=== PATIENT | male | born 1975 ===

== ENCOUNTER 2017-06-19 17:50 | Emergency (ER) | payer OTHER ==
[2017-06-19 17:56] VITALS: BMI 30.2
[2017-06-19 17:57] VITALS: TEMP 98.9
--- NOTE | 2017-06-19 18:38 | ED PDOC ---
Arrival/HPI - General Chief Complaint: Chest Pain Time Seen by Provider: 06/19/17 18:07 Historian: Patient - History of Present Illness Narrative History of Present Illness (Text): 06/19/17 18:53 41yo male with no PMHx who present with complaint of left sided rib pain x 4days. He notes that pain is usually with palpation and deep inspiration. did not take any medication for the pain. Denies SOB, diaphoresis, rash, fever, chills, trauma, chest pain, nausea, vomiting, any other complaint. Past Medical History - Provider Review Nursing Documentation Reviewed: Yes - Psychiatric Hx Substance Use: No Family/Social History - Physician Review Nursing Documentation Reviewed: Yes Family/Social History: Unknown Family HX Smoking Status: Never Smoked Hx Alcohol Use: No Hx Substance Use: No Allergies/Home Meds Allergies/Adverse Reactions: Allergies No Known Allergies Allergy (Verified 06/19/17 17:56) Review of Systems - Physician Review All systems were reviewed & negative as marked: Yes - Review of Systems Constitutional: Normal Eyes: Normal ENT: Normal Respiratory: Normal Cardiovascular: Normal Gastrointestinal: Normal Genitourinary Male: Normal Musculoskeletal: Arthralgias (Left anterior tib pain) Skin: Normal Neurological: Normal Endocrine: Normal Hemo/Lymphatic: Normal Psychiatric: Normal Physical Exam Vital Signs Reviewed: Yes Vital Signs Temp Pulse Resp BP Pulse Ox 06/19/17 19:05 75 18 141/94 H 100 06/19/17 17:58 98.9 F 80 19 168/105 H 96 06/19/17 17:57 98.9 F 79 17 168/105 H 95 Temperature: Afebrile Blood Pressure: Hypertensive Pulse: Regular Respiratory Rate: Normal Appearance: Positive for: Well-Appearing, Non-Toxic, Comfortable Pain Distress: None Mental Status: Positive for: Alert and Oriented X 3 - Systems Exam Head: Present: Atraumatic, Normocephalic Pupils: Present: PERRL Extroacular Muscles: Present: EOMI Conjunctiva: Present: Normal Mouth: Present: Moist Mucous Membranes Neck: Present: Normal Range of Motion Respiratory/Chest: Present: Clear to Auscultation, Good Air Exchange, Tender to Palpation (Over left anterior ribs). No: Respiratory Distress, Accessory Muscle Use, Decreased Breath Sounds, Rales, Retracting, Rhonchi Cardiovascular: Present: Regular Rate and Rhythm, Normal S1, S2. No: Murmurs Abdomen: Present: Normal Bowel Sounds. No: Tenderness, Distention, Peritoneal Signs Back: Present: Normal Inspection Upper Extremity: Present: Normal Inspection. No: Cyanosis, Edema Lower Extremity: Present: Normal Inspection. No: Edema Neurological: Present: GCS=15, CN II-XII Intact, Speech Normal Skin: Present: Warm, Dry, Normal Color. No: Rashes Psychiatric: Present: Alert, Oriented x 3, Normal Insight, Normal Concentration Medical Decision Making ED Course and Treatment: 06/19/17 20:03 Pt' pain improved in ED on re evaluation. Ribs series/CXR - No fracture. No PTX Result was DW the pt. His pain is reproducible. He will be DC home with NSAID rx. Referred to his PMD. VS improved. - RAD Interpretation Radiology Orders: 06/19/17 18:11 RIBS LEFT & PA CHEST [RAD] Stat - Medication Orders Current Medication Orders: Discontinued Medications Ketorolac Tromethamine (Toradol) 60 mg IM STAT STA Stop: 06/19/17 18:13 Last Admin: 06/19/17 18:22 Dose: 60 mg MAR Pain Assessment Document 06/19/17 18:22 LA (Rec: 06/19/17 18:26 LA [id number]) Pain Reassessment Is this a pain reassessment? No Sleep Is patient sleeping during reassessment? No Presence of Pain Presence of Pain Yes Pain Scale Used Pain Scale Used Numeric Location Left, Right or Bilateral Left Upper or Lower Upper Pain Location Body Site Chest IM Administration Charges Document 06/19/17 18:22 LA (Rec: 06/19/17 18:26 LA [id number]) Injection Site MAR Injection Site Left Gluteus Yovany Charges for Administration # of IM Administrations 1 Disposition/Present on Arrival - Present on Arrival Any Indicators Present on Arrival: No History of DVT/PE: No History of Uncontrolled Diabetes: No Urinary Catheter: No History of Decub. Ulcer: No History Surgical Site Infection Following: None - Disposition Have Diagnosis and Disposition been Completed?: Yes Diagnosis: Rib pain Disposition: HOME/ ROUTINE Disposition Time: 20:05 Patient Plan: Discharge Condition: STABLE Discharge Instructions (ExitCare): Chest Pain (ED) Additional Instructions: Follow up with your doctor Return to ED for any new or worsening symptoms Prescriptions: Naproxen [Naprosyn] 500 mg PO BID #20 tab Referrals: PCP,NO [Primary Care Provider] - Follow up with primary [facility] at [facility] [Outside] - Follow up with primary Forms: [employer] ([place]ian)
[2017-06-19 22:46] VITALS: BP 141/82; PULSE 82; RESP 18; O2SAT 98
--- NOTE | 2017-06-20 09:23 | RAD ---
PROCEDURE: Radiographs of the Chest and Left Ribs. HISTORY: left rib pain COMPARISON: None available. TECHNIQUE: Frontal radiograph of the chest and multiple oblique radiographs of the left ribs were obtained. FINDINGS: LEFT RIBS: No acute rib fracture or focal lesion visualized. LUNGS: The lungs are well inflated and clear. PLEURA: No pneumothorax or pleural fluid. CARDIOVASCULAR: Normal sized heart. No pulmonary vascular congestion. OTHER FINDINGS: None. IMPRESSION: No acute rib fracture or destructive bony lesion. Clear lungs.
== END 2017-06-19 20:17 | disposition home or self-care (01) ==
LOC: ED 17:50
DX: R07.81 Pleurodynia (principal)
CPT/HCPCS: 71101; 96372; 99284; J1885

== ENCOUNTER 2017-08-05 17:47 | Emergency (ER) | payer OTHER ==
[2017-08-05 17:47] VITALS: BMI 30.2
[2017-08-05 18:17] VITALS: TEMP 98.1
--- NOTE | 2017-08-05 18:43 | ED PDOC ---
Arrival/HPI - General Chief Complaint: Abdominal Pain Time Seen by Provider: 08/05/17 18:22 Historian: Patient - History of Present Illness Narrative History of Present Illness (Text): 08/05/17 18:38 42-year-old male presents today with left upper quadrant abdominal pain and left -sided chest pain since June 19. Patient states he was seen in the emergency room had x-rays and was given pain medications. Patient states the pain medication has not been working for the pain. Patient rates the pain as a 9 out of 10. Patient states the pain is constant and stabbing. He denies radiation of the pain. Denies nausea vomiting diarrhea or constipation. Denies urinary symptoms. Denies back pain. Denies palpitations. Patient denies any recent trauma or injury. Denies dizziness or weakness. Patient denies shortness of breath, but states that the pain worsens with deep inspiration. Patient states he has been taking Naprosyn without improvement in his symptoms. No other complaints Symptom Course: Unchanged Past Medical History - Provider Review Nursing Documentation Reviewed: Yes - Travel History Have you recently traveled outside [place] w/in the past 3 mons?: No - Infectious Disease Hx of Infectious Diseases: None - Tetanus Immunization Tetanus Immunization: Unknown - Psychiatric Hx Substance Use: No Family/Social History - Physician Review Nursing Documentation Reviewed: Yes Family/Social History: Unknown Family HX Smoking Status: Never Smoked Hx Alcohol Use: Yes Frequency of alcohol use: Socially Hx Substance Use: No Allergies/Home Meds Allergies/Adverse Reactions: Allergies No Known Allergies Allergy (Verified 08/05/17 18:12) Home Medications: Home Meds Medication Instructions Recorded Confirmed No Known Home Med 08/05/17 08/05/17 Review of Systems - Review of Systems Constitutional: absent: Fatigue, Fevers Respiratory: absent: SOB, Cough Cardiovascular: Chest Pain. absent: Palpitations Gastrointestinal: Abdominal Pain. absent: Constipation, Diarrhea, Nausea, Vomiting Genitourinary Male: absent: Dysuria, Frequency, Hematuria Musculoskeletal: absent: Arthralgias, Back Pain, Neck Pain Skin: absent: Rash, Pruritis Neurological: absent: Headache, Dizziness Psychiatric: absent: Anxiety, Depression, Suicidal Ideation Physical Exam Vital Signs Reviewed: Yes Vital Signs Temp Pulse Resp BP Pulse Ox 08/05/17 22:39 74 17 131/80 99 08/05/17 18:03 98.1 F 76 18 143/93 H 98 Temperature: Afebrile Blood Pressure: Hypertensive Pulse: Regular Respiratory Rate: Normal Appearance: Positive for: Well-Appearing, Non-Toxic, Comfortable Pain Distress: None Mental Status: Positive for: Alert and Oriented X 3 - Systems Exam Head: Present: Atraumatic Mouth: Present: Moist Mucous Membranes Neck: Present: Normal Range of Motion Respiratory/Chest: Present: Clear to Auscultation, Good Air Exchange, Tender to Palpation (+ minimal ttp over left lower anterior chest; no edema, no erythema; no step offs or crepitus. ). No: Respiratory Distress, Accessory Muscle Use, Tachypneic Cardiovascular: Present: Regular Rate and Rhythm. No: Murmurs, Tachycardic Abdomen: Present: Tenderness (LUQ and epigastric tenderness), Normal Bowel Sounds. No: Distention, Peritoneal Signs, Rebound, Guarding Back: Present: Normal Inspection. No: CVA Tenderness, Midline Tenderness, Paraspinal Tenderness Upper Extremity: Present: Normal ROM Lower Extremity: Present: Normal ROM Neurological: Present: GCS=15, Speech Normal Skin: Present: Warm, Dry, Normal Color. No: Rashes Psychiatric: Present: Alert, Oriented x 3 Medical Decision Making ED Course and Treatment: 08/05/17 18:45 Patient is nontoxic well appearing with stable vital signs presenting with 10/ 10 luq abdominal pain CBC wnl CMP wnl Lipase wnl Urinalysis wnl CAT scan: FINDINGS: CT Chest With Intravenous Contrast FINDINGS: Lungs: Patchy areas of nonspecific groundglass density are identified within the lungs bilaterally. Atelectatic change is visualized within the lingula. No lung mass. Pleural space: No pneumothorax. No significant effusion. Heart: No cardiomegaly. No significant pericardial effusion. Mediastinum: Mild patchy increased density is seen within the anterior mediastinum, suggestive of thymic tissue or inflammatory change. Bones/joints: No acute fracture. Vasculature: No thoracic aortic aneurysm. Lymph nodes: No enlarged lymph nodes. IMPRESSION: 1. Patchy areas of nonspecific groundglass density are identified within the lungs bilaterally. Atelectatic change is visualized within the lingula. 2. Mild patchy increased density is seen within the anterior mediastinum, suggestive of thymic tissue or inflammatory change. ABDOMEN: Liver: There is mild hypodense fatty infiltration of the liver. The liver measures 18.6 cm in the craniocaudad dimension, consistent with borderline hepatomegaly. Gallbladder and bile ducts: No calcified stones. No ductal dilation. Pancreas: Normal contour, without acute peripancreatic stranding. Spleen: No splenomegaly. Adrenals: No mass. Kidneys and ureters: No hydronephrosis. No solid mass. Stomach and bowel: There is borderline distention of a short segment of small bowel within the anterior abdomen, with an air-fluid level. This is of indeterminate clinical significance. This is visualized on series 2 image 76. Appendix: No findings to suggest acute appendicitis. PELVIS: Bladder: No mass. Reproductive: Unremarkable as visualized. ABDOMEN and PELVIS: Intraperitoneal space: No free air. Bones/joints: No acute fracture. Soft tissues: There is mild herniation of fat into the umbilicus. Vasculature: No abdominal aortic aneurysm. Lymph nodes: No enlarged lymph nodes. IMPRESSION: 1. There is mild hypodense fatty infiltration of the liver. Borderline hepatomegaly. 2. There is borderline distention of a short segment of small bowel within the anterior abdomen, with an air-fluid level. Correlation with the clinical exam is recommended. 3. Incidental/non-acute findings are described above. Patient reassessment: pt feeling better with medications; still with minimal luq tenderness. vitals remain stable. Discussed all results with patient in depth case discussed with dr. obando; accepts observational status admission for abdominal pain with ct finding of possible SBO. case discussed with surgical training specialist dr. deleon; Impression: Abdominal pain, SBO admit observational status to med/surg - Lab Interpretations Lab Results: 08/05/17 18:44 08/05/17 18:44 Lab Results 08/05/17 18:44: WBC 8.0, RBC 5.23, Hgb 15.5, Hct 43.9, MCV 83.9, MCH 29.6, MCHC 35.3, RDW 13.4, Plt Count 254, MPV 11.3 H, Gran % 54.6, Lymph % (Auto) 32.8, [place] % (Auto) 8.7 H, Eos % (Auto) 3.5, Baso % (Auto) 0.4, Gran # 4.34, Lymph # ( Auto) 2.6, [place] # (Auto) 0.7 H, Eos # (Auto) 0.3, Baso # (Auto) 0.03 08/05/17 18:44: Sodium 142, Potassium 4.1, Chloride 103, Carbon Dioxide 28, Anion Gap 14, BUN 16, Creatinine 1.1, Est GFR ( Amer) > 60, Est GFR (Non- Af Amer) > 60, Random Glucose 87, Calcium 10.5, Total Bilirubin 0.6, AST 55, ALT 91 H, Alkaline Phosphatase 107, Lactate Dehydrogenase 485, Total Creatine Kinase 73, Troponin I < 0.01, Total Protein 7.9, Albumin 4.4, Globulin 3.6, Albumin/Globulin Ratio 1.2, Amylase 56, Lipase 90 08/05/17 18:44: PT 11.5, INR 1.01, APTT 32.2 08/05/17 18:30: Urine Color Yellow, Urine Appearance Clear, Urine pH 6.0, Ur Specific [place] 1.020, Urine Protein Negative, Urine Glucose (UA) Negative, Urine Ketones Negative, Urine Blood Negative, Urine Nitrate Negative, Urine Bilirubin Negative, Urine Urobilinogen 0.2, Ur Leukocyte Esterase Negative - RAD Interpretation Radiology Orders: 08/05/17 18:28 ABD & PELVIS IV CONTRAST ONLY [CT] Stat CHEST PORTABLE [RAD] Stat - Medication Orders Current Medication Orders: Discontinued Medications Famotidine (Pepcid) 20 mg IVP STAT STA Stop: 08/05/17 18:46 Last Admin: 08/05/17 19:33 Dose: 20 mg IVP Administration Document 08/05/17 19:33 SF (Rec: 08/05/17 19:33 SF [id number]) Charges for Administration # of IVP Administrations 1 Sodium Chloride (Sodium Chloride 0.9%) 1,000 mls @ 999 mls/hr IV .Q1H1M STA Stop: 08/05/17 21:15 Last Admin: 08/05/17 21:09 Dose: 999 mls/hr eMAR Start Stop Document 08/05/17 21:09 AD (Rec: 08/05/17 21:09 AD [id number]) Intravenous Solution Start Date 08/05/17 Start Time 21:09 Ketorolac Tromethamine (Toradol) 30 mg IVP STAT STA Stop: 08/05/17 23:27 Last Admin: 08/05/17 23:41 Dose: 30 mg MAR Pain Assessment Document 08/05/17 23:41 RD (Rec: 08/05/17 23:41 RD [id number]) Pain Reassessment Is this a pain reassessment? No Sleep Is patient sleeping during reassessment? No Presence of Pain Presence of Pain Yes IVP Administration Document 08/05/17 23:41 RD (Rec: 08/05/17 23:41 RD [id number]) Charges for Administration # of IVP Administrations 1 Morphine Sulfate (Morphine) 2 mg IVP STAT STA Stop: 08/05/17 23:27 Last Admin: 08/05/17 23:53 Dose: Not Given Non-Admin Reason: Patient Refused Comments: PA made aware. Disposition/Present on Arrival - Present on Arrival Any Indicators Present on Arrival: No History of DVT/PE: No History of Uncontrolled Diabetes: No Urinary Catheter: No History of Decub. Ulcer: No History Surgical Site Infection Following: None - Disposition Have Diagnosis and Disposition been Completed?: Yes Diagnosis: Abdominal pain, Small bowel obstruction Disposition: HOSPITALIZED Disposition Time: 00:29 Patient Plan: Observation Condition: FAIR Referrals: PCP,NO [Primary Care Provider] - Follow up with primary Forms: [employer] ([place]ian)
[2017-08-05 19:01] LABS: URINE BILIRUBIN NEGATIVE (NEGATIVE); URINE BLOOD NEGATIVE (NEGATIVE); URINE GLUCOSE (UA) NEGATIVE (NEGATIVE); URINE LEUKOCYTE ESTERASE NEGATIVE Leu/uL (NEGATIVE); URINE PROTEIN NEGATIVE mg/dL (<30 mg/dL); URINE UROBILINOGEN 0.2 E.U./dL (<1 E.U./dL)
[2017-08-05 19:02] LABS: URINE APPEARANCE CLEAR (CLEAR); URINE COLOR YELLOW (YELLOW)
[2017-08-05 19:11] LABS: BASO # 0.03 K/mm3 (0.0-2.0); BASO % 0.4 % (0.0-3.0); EOS # 0.3 (0.0-0.7); EOS % 3.5 % (1.5-5.0); GRAN # 4.34 (1.4-6.5); GRAN % 54.6 % (50.0-68.0); HEMOGLOBIN 15.5 g/dL (14.0-18.0); LYMPH # 2.6 (1.2-3.4); LYMPH % 32.8 % (22.0-35.0); MEAN CELL VOLUME 83.9 fl (80.0-105.0); MEAN CORPUSCULAR HEMOGLOBIN 29.6 pg (25.0-35.0); MEAN CORPUSCULAR HGB CONC 35.3 g/dl (31.0-37.0); MEAN PLATELET VOLUME 11.3 fl (7.0-11.0); MONO # 0.7 (0.1-0.6); MONO % 8.7 % (1.0-6.0); RBC 5.23 10^6/uL (3.5-6.1); RED CELL DISTRIBUTION WIDTH 13.4 % (11.5-14.5)
[2017-08-05 19:25] LABS: INR 1.01 (0.93-1.08); PARTIAL THROMBOPLASTIN TIME 32.2 Seconds (25.1-36.5); PROTHROMBIN TIME 11.5 SECONDS (9.4-12.5)
[2017-08-05 19:32] LABS: ALB/GLOB RATIO 1.2 (1.1-1.8); ALBUMIN 4.4 g/dL (3.0-4.8); ALT/SGPT 91 U/L (7-56); AMYLASE 56 U/L (35-125); AST/SGOT 55 U/L (17-59); BLOOD UREA NITROGEN 16 mg/dL (7-21); CALCIUM 10.5 mg/dL (8.4-10.5); GFR AFRICAN-AMERICAN > 60; GFR NON-AFRICAN AMERICAN > 60; LIPASE 90 U/L (23-300); TROPONIN I < 0.01 ng/mL
[2017-08-05] MEDS ORDERED: Sodium Chloride 0.9% 1,000 ML IV STA (20:15)
[2017-08-05] MEDS ORDERED: Iohexol 350 MG/100 ML VIAL ONE (20:19)
[2017-08-05 22:41] VITALS: O2SAT 99
--- NOTE | 2017-08-05 23:04 | CT ---
EXAM: CT Abdomen and Pelvis With Intravenous Contrast CLINICAL HISTORY: The patient age is 42 years old and is male; Pain; Abdominal pain; Acute; Additional info: Abd pain Facility exam id and description: Ct abdpelciv abd pelvis iv contrast only TECHNIQUE: Axial computed tomography images of the abdomen and pelvis with intravenous contrast. All CT scans at this facility use one or more dose reduction techniques, viz.: automated exposure control; ma/kV adjustment per patient size (including targeted exams where dose is matched to indication; i.e. head); or iterative reconstruction technique. Coronal and sagittal reformatted images were created and reviewed. CONTRAST: 100 mL of omni 350 administered intravenously. COMPARISON: No relevant prior studies available. FINDINGS: ABDOMEN: Liver: There is mild hypodense fatty infiltration of the liver. The liver measures 18.6 cm in the craniocaudad dimension, consistent with borderline hepatomegaly. Gallbladder and bile ducts: No calcified stones. No ductal dilation. Pancreas: Normal contour, without acute peripancreatic stranding. Spleen: No splenomegaly. Adrenals: No mass. Kidneys and ureters: No hydronephrosis. No solid mass. Stomach and bowel: There is borderline distention of a short segment of small bowel within the anterior abdomen, with an air-fluid level. This is of indeterminate clinical significance. This is visualized on series 2 image 76. Appendix: No findings to suggest acute appendicitis. PELVIS: Bladder: No mass. Reproductive: Unremarkable as visualized. ABDOMEN and PELVIS: Intraperitoneal space: No free air. Bones/joints: No acute fracture. Soft tissues: There is mild herniation of fat into the umbilicus. Vasculature: No abdominal aortic aneurysm. Lymph nodes: No enlarged lymph nodes. IMPRESSION: 1. There is mild hypodense fatty infiltration of the liver. Borderline hepatomegaly. 2. There is borderline distention of a short segment of small bowel within the anterior abdomen, with an air-fluid level. Correlation with the clinical exam is recommended. 3. Incidental/non-acute findings are described above. EXAM: CT Chest With Intravenous Contrast EXAM DATE/TIME: 08/05/2017 6:28 PM CLINICAL HISTORY: The patient age is 42 years old and is male; Pain; Abdominal pain; Acute; Additional info: Abd pain Facility exam id and description: Ct abdpelciv abd pelvis iv contrast only TECHNIQUE: Axial computed tomography images of the chest with intravenous contrast. CONTRAST: 100 mL of omni 350 administered intravenously. COMPARISON: No relevant prior studies available. FINDINGS: Lungs: Patchy areas of nonspecific groundglass density are identified within the lungs bilaterally. Atelectatic change is visualized within the lingula. No lung mass. Pleural space: No pneumothorax. No significant effusion. Heart: No cardiomegaly. No significant pericardial effusion. Mediastinum: Mild patchy increased density is seen within the anterior mediastinum, suggestive of thymic tissue or inflammatory change. Bones/joints: No acute fracture. Vasculature: No thoracic aortic aneurysm. Lymph nodes: No enlarged lymph nodes. IMPRESSION: 1. Patchy areas of nonspecific groundglass density are identified within the lungs bilaterally. Atelectatic change is visualized within the lingula. 2. Mild patchy increased density is seen within the anterior mediastinum, suggestive of thymic tissue or inflammatory change.
[2017-08-05] MEDS ORDERED: Morphine 2 mg/ml ISec IVP STA (23:26)
[2017-08-06 00:41] LABS: VENOUS BLOOD GAS BASE EXCESS -0.6 mmol/L (0.0-2.0); VENOUS BLOOD GAS PO2 80 mm/Hg (30-55); VENOUS BLOOD PH 7.35 (7.32-7.43)
--- NOTE | 2017-08-06 01:03 | CP.PCM.CON ---
History of Present Illness - History of Present Illness History of Present Illness: General surgery consult note for Dr. Mccarty Consulted for: LUQ pain Patient is a 42M who denies PMH or PSH who presents with 6 weeks of LUQ abdominal pain and left lower chest pain. Patient presented to the ER in June when the pain first started and was told to take naproxen and sent home. Patient states that the pain has only become worse since and today was very bad so he decided to come in. Patient states that the pain is daily, intermittent, cramping in nature, and reproducible with palpation when present. Denies any association with eating, not eating, any particular food, or time of day. Pain does not radiate. Denies any nausea, vomiting, diarrhea, constipation , hematemesis, hematochezia, melena, dysuria, back pain, or any other symptoms. Patient denies any history of trauma to the area. Patient was given pepcid in the ED without relief but pain completely resolved with toradol IV. Patient denies any smoking or drug use but admits to occasional alcohol consumption. Review of Systems - Review of Systems All systems: reviewed and no additional remarkable complaints except (as per HPI ) Past Patient History - Infectious Disease Hx of Infectious Diseases: None - Tetanus Immunizations Tetanus Immunization: Unknown - Past Medical History & Family History Past Medical History?: Yes Past Family History: Reviewed and not pertinent - Past Social History Smoking Status: Never Smoked Alcohol: Occasional Drugs: Denies - CARDIAC Hx Cardiac Disorders: No - PULMONARY Hx Respiratory Disorders: No - ENDOCRINE/METABOLIC Hx Diabetes Insipidus: No Hx Diabetes Mellitus Type 1: No Hx Diabetes Mellitus Type 2: No - PSYCHIATRIC Hx Substance Use: No - SURGICAL HISTORY Hx Surgeries: No Meds Allergies/Adverse Reactions: Allergies Allergy/AdvReac Type Severity Reaction Status Date / Time No Known Allergies Allergy Verified 08/05/17 18:12 Physical Exam - Constitutional Appears: Well, Non-toxic, No Acute Distress - Head Exam Head Exam: ATRAUMATIC, NORMOCEPHALIC - Eye Exam Eye Exam: Normal appearance. absent: Conjunctival injection, Scleral icterus - ENT Exam ENT Exam: Mucous Membranes Moist, Normal Oropharynx - Respiratory Exam Respiratory Exam: NORMAL BREATHING PATTERN. absent: Accessory Muscle Use, Respiratory Distress - Cardiovascular Exam Cardiovascular Exam: RRR Additional comments: No tenderness to palpation of the left ribs or sternum. No gross deformities or ecchymosis or crepitus - GI/Abdominal Exam GI & Abdominal Exam: Soft. absent: Distended, Guarding, Organomegaly, Rebound, Tenderness Additional comments: negative simpson's, negative mcburney's point tenderness - Extremities Exam Extremities exam: Positive for: pedal pulses present. Negative for: calf tenderness, pedal edema - Back Exam Back exam: NORMAL INSPECTION. absent: CVA tenderness (L), CVA tenderness (R), paraspinal tenderness, vertebral tenderness Additional comments: no ecchymosis - Neurological Exam Neurological exam: Alert, Oriented x3 - Psychiatric Exam Psychiatric exam: Normal Affect, Normal Mood - Skin Skin Exam: Dry, Intact, Normal Color, Warm Results - Vital Signs Recent Vital Signs: Last Vital Signs Temp 98.1 F 08/05/17 18:03 Pulse 74 08/05/17 22:39 Resp 17 08/05/17 22:39 BP 131/80 08/05/17 22:39 Pulse Ox 99 08/05/17 22:39 - Labs Result Diagrams: 08/05/17 18:44 08/05/17 18:44 Labs: Laboratory Results - last 24 hr 08/05/17 08/05/17 08/05/17 18:30 18:44 18:44 WBC RBC Hgb Hct MCV MCH MCHC RDW Plt Count MPV Gran % Lymph % (Auto) [place] % (Auto) Eos % (Auto) Baso % (Auto) Gran # Lymph # (Auto) [place] # (Auto) Eos # (Auto) Baso # (Auto) PT 11.5 INR 1.01 APTT 32.2 pO2 VBG pH VBG pCO2 VBG HCO3 VBG Total CO2 VBG O2 Sat (Calc) VBG Base Excess VBG Potassium Glucose Lactate FiO2 Sodium 142 Potassium 4.1 Chloride 103 Carbon Dioxide 28 Anion Gap 14 BUN 16 Creatinine 1.1 Est GFR ( Amer) > 60 Est GFR (Non-Af Amer) > 60 Random Glucose 87 Calcium 10.5 Total Bilirubin 0.6 AST 55 ALT 91 H Alkaline Phosphatase 107 Lactate Dehydrogenase 485 Total Creatine Kinase 73 Troponin I < 0.01 Total Protein 7.9 Albumin 4.4 Globulin 3.6 Albumin/Globulin Ratio 1.2 Amylase 56 Lipase 90 Venous Blood Potassium Urine Color Yellow Urine Appearance Clear Urine pH 6.0 Ur Specific [place] 1.020 Urine Protein Negative Urine Glucose (UA) Negative Urine Ketones Negative Urine Blood Negative Urine Nitrate Negative Urine Bilirubin Negative Urine Urobilinogen 0.2 Ur Leukocyte Esterase Negative 08/05/17 08/06/17 18:44 00:15 WBC 8.0 RBC 5.23 Hgb 15.5 Hct 43.9 MCV 83.9 MCH 29.6 MCHC 35.3 RDW 13.4 Plt Count 254 MPV 11.3 H Gran % 54.6 Lymph % (Auto) 32.8 [place] % (Auto) 8.7 H Eos % (Auto) 3.5 Baso % (Auto) 0.4 Gran # 4.34 Lymph # (Auto) 2.6 [place] # (Auto) 0.7 H Eos # (Auto) 0.3 Baso # (Auto) 0.03 PT INR APTT pO2 80 H VBG pH 7.35 VBG pCO2 46.0 VBG HCO3 25.4 VBG Total CO2 26.8 VBG O2 Sat (Calc) 98.1 H VBG Base Excess -0.6 L VBG Potassium 3.7 Glucose 95 Lactate 1.5 FiO2 21.0 Sodium 138.0 Potassium Chloride 106.0 Carbon Dioxide Anion Gap BUN Creatinine Est GFR ( Amer) Est GFR (Non-Af Amer) Random Glucose Calcium Total Bilirubin AST ALT Alkaline Phosphatase Lactate Dehydrogenase Total Creatine Kinase Troponin I Total Protein Albumin Globulin Albumin/Globulin Ratio Amylase Lipase Venous Blood Potassium 3.7 Urine Color Urine Appearance Urine pH Ur Specific [place] Urine Protein Urine Glucose (UA) Urine Ketones Urine Blood Urine Nitrate Urine Bilirubin Urine Urobilinogen Ur Leukocyte Esterase - Imaging and Cardiology CT scan - abdomen Status: Image reviewed by me, Report reviewed by me CT scan - pelvis Status: Image reviewed by me, Report reviewed by me Assessment & Plan - Assessment and Plan (Free Text) Assessment: 42M with no significant PMH with LUQ abdominal pain and Left chest pain--GERD vs gastritis/PUD vs costocondritis Plan: No indication for surgical intervention at this time. Patient has no signs of SBO, gall bladder disease, or pancreatitis, or any other acute surgical issue Recommend a GI consult to determine if EGD is warranted Recommend protonix and non-NSAID pain relief Follow up lactic acid level Patient expressed desire to leave [place] due to possible inclement weather. If patient decides to do so he can follow up with Dr. Mccarty in her office as an outpatient and would also benefit from an outpatient GI referral and antacid therapy If patient is actually admitted, we will continue to follow with you Thank you for this consult. Further recommendations per Dr. Mccarty if patient remains here Mira Bailon, PGY2
[2017-08-06 01:22] VITALS: BP 127/76; PULSE 70; RESP 18
--- NOTE | 2017-08-06 08:39 | RAD ---
HISTORY: chest pain COMPARISON: 06/19/2017 FINDINGS: LUNGS: No active pulmonary disease. PLEURA: No significant pleural effusion identified, no pneumothorax apparent. CARDIOVASCULAR: No radiographic findings to suggest acute or significant cardiovascular disease. OSSEOUS STRUCTURES: No significant abnormalities. VISUALIZED UPPER ABDOMEN: Normal. OTHER FINDINGS: None. IMPRESSION: No active disease. No significant interval change compared to the prior examination(s). Concordant results with the preliminary interpretation rendered by the emergency department physician procedure.
--- NOTE | 2017-08-06 17:22 | CARD ---
APPROVED REPORT EKG Measurement Heart [id number] [id number] <Conclusion> Normal sinus rhythm Cannot rule out Anterior infarct, age undetermined Abnormal ECG
== END 2017-08-06 01:15 | disposition left against medical advice (07) ==
LOC: ED 17:47 → ERH 08-06 00:22 → UNDOADMOB 08-06 00:22 → ERH 08-06 01:31
DX: K56.609 Unspecified intestinal obstruction, unspecified as to partial versus complete obstruction (principal); R10.12 Left upper quadrant pain
CPT/HCPCS: 71045; 74177; 80053; 81003; 82150; 82550; 82803; 83615; 83690; 84484; 85025; 85610; 85730; 93005; 96374; 96375; 99284; J1885; J7040; Q9967